=== PATIENT | male | born 1995 | race African-American/Black ===

== ENCOUNTER 2024-05-01 18:12 | Emergency (ER) | payer MEDICAID, OTHER ==
[~2024-05-01] VITALS: Ht 170.2 cm; Wt 61.4 kg
[~2024-05-01 18:12] MED LIST: ALBU18HF7 IH
[2024-05-01 18:23] VITALS: TEMP 98.7
[2024-05-01 19:38] LABS: INFLUENZA A-RTPCR,COMBO NEGATIVE (NEGATIVE); INFLUENZA B-RTPCR,COMBO NEGATIVE (NEGATIVE); RESPIRATORY SYNCYTIAL VRS-PCR NEGATIVE (NEGATIVE)
[2024-05-01 19:57] LABS: SARS COVID19 RTPCR, COMBO POSITIVE (NEGATIVE)
[2024-05-01 21:16] LABS: ANION GAP 9 mmol/L (8-16); CARBON DIOXIDE 28 mmol/L (22-29); CHLORIDE 101 mmol/L (98-107); CREATININE 1.31 mg/dL (0.60-1.30); GLOMERULAR FILTR. RATE CALC > 60 mL/min (>60); GLUCOSE,RANDOM 84 mg/dL (70-110); SODIUM SERUM 138 mmol/L (136-145); UREA NITROGEN, BLOOD 24 mg/dL (7-18)
[2024-05-01] MEDS ORDERED: NIRM1TAB10 PO (22:07)
[2024-05-01 22:15] VITALS: BP 115/64; PULSE 85; RESP 20
[2024-05-02] MEDS ORDERED: ALBU18HF12 IH (12:53)
== END 2024-05-01 22:15 | disposition home or self-care (01) ==
LOC: EMS 18:12
DX: U07.1 COVID-19 (principal); J45.909 Unspecified asthma, uncomplicated
CPT/HCPCS: 99283; 0241U; 80048; 87430; 36415

== ENCOUNTER 2024-05-02 12:08 | Emergency (ER) | payer MEDICAID ==
[~2024-05-02] VITALS: Ht 170.2 cm; Wt 72.7 kg
[~2024-05-02 12:08] MED LIST changes: +NIRM1TAB10 PO
[2024-05-02 12:29] VITALS: TEMP 100.4
[2024-05-02] MEDS ORDERED: ALBU18HF12 IH (12:53)
[2024-05-02] MEDS: ACETAMINOPHEN 325 MG TABLET PO ONE (13:34)
[2024-05-02 13:46] VITALS: BP 100/62; PULSE 97; RESP 16
== END 2024-05-02 13:48 | disposition home or self-care (01) ==
LOC: EMS 12:08
DX: U07.1 COVID-19 (principal); J45.901 Unspecified asthma with (acute) exacerbation; Z88.6 Allergy status to analgesic agent
CPT/HCPCS: 99283